=== PATIENT | male | born 1995 | race Caucasian/White ===

== ENCOUNTER 2025-06-29 21:01 | Emergency (ER) | payer BC, MEDICAID, SELFPAY ==
--- OUTSIDE RECORDS SUMMARY | 2003-08-10 12:00 | XMS_ITS | Continuity of Care Document ---
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 Phone Unavailable Unavailable Unavailable Medications Medication Instructions Dosage Effective Dates (start - stop) Status Comments FLOVENT 110MCGAER W/ADAP 1 tablet by mouth every day - Active Proventil HFA 90 mcg/actuation Aerosol Inhaler Inhale 2 puffs by mouth every 4 hours - Active Advance Directives Directive Yes / No Effective Date File Name No Information Encounters Encounter Description Practice Location Reason(s) For Visit Diagnoses Date Provider Providers Copied on [facility], [address] [place] [address], [id number], tel:[phone] [facility] No Information Jul-3 0-200 3 No Information [facility], [address] [place] [address], [id number], [place] tel:[phone] [facility] No Information Jul-1 8-200 3 No Information Family History Family Member Type Diagnosis Age At Onset No Information Immunizations Vaccine Date Status Comments DTaP administered Source: New Imm unization Record IPV administered Source: New Imm unization Record MMR administered Source: New Imm unization Record DTaP administered Source: New Imm unization Record Hib administered Source: New Imm unization Record Varicella administered Source: New Imm unization Record Hep B administered Source: New Imm unization Record IPV administered Source: New Imm unization Record DTaP administered Source: New Imm unization Record Hib administered Source: New Imm unization Record IPV administered Source: New Imm unization Record Hib administered Source: New Imm unization Record DTaP administered Source: New Imm unization Record IPV administered Source: New Imm unization Record Hib administered Source: New Imm unization Record DTaP administered Source: New Imm unization Record MMR administered Source: New Imm unization Record Hep B administered Source: New Imm unization Record Hep B administered Source: New Imm unization Record Payers Payer name Insurance type Covered alliance party ID Authoriza tion(s) No Information Social History Type Description Quantity Date Captured Comments Sex Male Smoking Status No Information Chief Complaint And Reason For Visit No Information Reason For Referral Reason For Referral No Information History Of Present Illness Encounter Date Complaint History Of Prese nt Illness No Information Functional Status Date Functional Assessmen t No Information Instructions Date Instruction Additional Infor mation No Information Assessments Type Assessment Date No Information Patient Care Teams Name Effective Dates (start - stop) Status Members No Information
[2025-06-29 21:41] VITALS: BP 141/92; PULSE 82; RESP 20; TEMP 36.8; O2SAT 100; BMI 20.7
--- NOTE | 2025-06-29 22:12 | ED_ITS ---
HPI - Skin/Abscess/Foreign Bdy General: Chief complaint: Skin/Abscess/Foreign Body Stated complaint: staph infection in both legs spreading to feet Time Seen by Provider: 06/29/25 22:05 History of Present Illness: Patient comes in with sores on his leg. States that couple weeks ago he had some bug bites [place] States he noticed the next couple of days that he started developing redness of his right lower extremity that then developed into some purulent vesicular lesions. On physical exam he has multiple excoriated ulcerating wounds on his right lower extremity with superimposed pustular filled lesions on top consistent with impetigo. He also has surrounding erythema of his right lower extremity that is hot to touch. Will start him on antibiotics. We discussed symptoms that should prompt immediate return to the emergency department. He has no large abscesses or areas of fluctuance that need to be drained. Will discharge with precautions to return for worsening or changing symptoms. Differential diagnosis: Acute cellulitis, acute abscess, acute dermatitis, Related Data Previous Rx's ?Medication ?Instructions ?Recorded hydrocodone 7.5 mg-acetaminophen 1 tab PO Q8H PRN pain #20 tabs 07/29/24 325 mg tablet cephalexin 500 mg capsule 500 mg PO BID 7 days #14 cap s 06/29/25 sulfamethoxazole 800 1 tab PO BID 7 days #14 tabs 06/29/25 mg-trimethoprim 160 mg tablet (Bactrim DS) Allergies Allergy/AdvReac Type Severity Reaction Status Date / Time Penicillins Allergy Unknown Unknown Verified 07/29/24 15:53 Review of Systems Skin/Breast: Reports: other (Sores on the leg, redness of the leg) Physical Exam Skin: OTHER: multiple excoriated ulcerating wounds on his right lower extremity with superimposed pustular filled lesions on top. He also has surrounding erythema of his right lower extremity that is hot to touch. Course Vital Signs: Vital signs: Vital Signs Temperature 98.3 F 06/29/25 21:41 Pulse Rate 82 06/29/25 21:41 Respiratory Rate 20 H 06/29/25 21:41 Blood Pressure 141/92 06/29/25 21:41 Pulse Oximetry 100 06/29/25 21:41 Oxygen Delivery Me thod Room Air 06/29/25 21:41 MDM - Skin/Abscess/Foreign Bdy Medicial Decision Making na No radiology studies performed this visit Discharge Plan Discharge Patient Disposition: Home Clinical Impression: Cellulitis Condition: Stable Prescriptions: New sulfamethoxazole-trimethoprim [Bactrim DS] 800-160 mg tablet 1 tab PO BID 7 Days Qty: 14 0RF cephalexin 500 mg capsule 500 mg PO BID 7 Days Qty: 14 0RF No Action hydrocodone-acetaminophen 7.5-325 mg tablet 1 tab PO Q8H PRN (Reason: pain) Qty: 20 0RF Discharge Orders: Discharge ED (Routine); Ordered 06/29/25 Ordered By: Eliezer Mcghee Patient Instructions: Cellulitis (ED), Patient Portal & Virgilio Instructions Print Language: Polish Coding Level of Care Code ED Acid Recovery Operator for Jeanette Garcia
[2025-06-29] MEDS: sulfamethoxazole-trimeth DS 160-800 mg Tablet 1 TAB PO (22:25)
[2025-06-29 23:19] VITALS: BP 138/85; PULSE 78; RESP 16; O2SAT 97
== END 2025-06-29 23:08 | disposition home or self-care (01) ==
PROVIDERS: Emergency Provider Emergency Medicine
DX: L03.115 Cellulitis of right lower limb (principal)
CPT/HCPCS: 99283; J9999